=== PATIENT | male | born 1950 | race Caucasian/White ===

== ENCOUNTER 2016-06-18 18:52 | Emergency (ER) | payer BC, MEDICARE ==
[~2016-06-18] VITALS: Ht 172.7 cm; Wt 99.6 kg
[~2016-06-18 18:52] MED LIST: ASPI-860 PO; FENO145T2 PO; METO25TA60 PO; MULT-301 PO; OLME40TA12 PO; OMEP20TA33 PO; OMG1KC PO; ROSU5TAB PO; SOLI5TAB2 PO
[2016-06-18] MEDS ORDERED: HYDROmorphone 1 MG/ML (DILAUDID) SYRINGE IM ONE (19:15)
[2016-06-18] MEDS ORDERED: PROMETHAZINE 25 MG/ML (PHENERGAN) 1 ML VIAL IM ONE (19:15)
[2016-06-18] MEDS ORDERED: HYDR-3811 PO (20:05)
--- NOTE | 2016-06-18 20:29 | Diagnostic Imaging Report ---
INDICATION: Right rib injury PA chest and two oblique views of the right ribs There are fractures of the right posterior 9th, 10th and 11th ribs. There are no effusions or pneumothoraces. IMPRESSION: Nondisplaced fractures right posterior 9th, 10th and 11th ribs. Dictated by: Dictated on workstation # [id number]
[2016-06-18 20:34] VITALS: BP 137/89
== END 2016-06-18 20:30 | disposition home or self-care (01) ==
LOC: ED 18:52
DX: S22.41XA Multiple fractures of ribs, right side, initial encounter for closed fracture (principal); W01.198A Fall on same level from slipping, tripping and stumbling with subsequent striking against other object, initial encounter; Y93.E1 Activity, personal bathing and showering; Y92.002 Bathroom of unspecified non-institutional (private) residence as the place of occurrence of the external cause
CPT/HCPCS: 71100; 96372; 99282; J1170; J2550; 99283

== ENCOUNTER → 2016-06-27 | Outpatient (CLI) | payer BC, MEDICARE ==
[~2016-06-27] MED LIST changes: +HYDR-3811 PO
--- NOTE | 2016-06-27 20:19 | Diagnostic Imaging Report ---
INDICATION: Status post recent fall in shower. Rib fractures. TECHNIQUE: Four views of right ribs at 3:05 PM. CORRELATION STUDY: 06/18/2016 FINDINGS: Multiple mildly displaced right posterolateral rib fracture deformities again demonstrated involving the 9th, 10th and 11th ribs. The severity of displacement overall generally stable. Right lung clear without evidence for significant infiltrate, effusion or pneumothorax. Patient is post sternotomy. IMPRESSION: 1. Mildly displaced right posterolateral 9th, 10th and 11th rib fractures again demonstrated. Dictated by: Dictated on workstation # [id number]
== END ==
LOC: RAD 14:43
PROVIDERS: ATTEND Family Medicine
DX: R07.81 Pleurodynia (principal); S22.41XA Multiple fractures of ribs, right side, initial encounter for closed fracture; W18.2XXA Fall in (into) shower or empty bathtub, initial encounter
CPT/HCPCS: 71100